=== PATIENT | male | born 1985 | race American Indian/Alaskan Native ===

== ENCOUNTER 2018-01-07 08:36 | Emergency (ER) | payer SELFPAY ==
[2018-01-07] MEDS ORDERED: Ondansetron 4 MG/2 ML SDV IVPUSH ONE (08:53)
[2018-01-07] MEDS ORDERED: Sodium Chloride 0.9% 10 ML Syringe FLUSH PRN ×2 (08:53→11:41)
[2018-01-07] MEDS ORDERED: Sodium Chloride 0.9% 1,000 ML IV SCH ×2 (09:00→10:00)
[2018-01-07] MEDS ORDERED: Sodium Chloride 0.9% 1,000 ML ONE (10:04)
--- NOTE | 2018-01-07 10:12 | CT ---
Head CT Technique: Multiple axial sections were obtained through the brain. Intravenous contrast was not utilized. Comparison: No previous intracranial imaging is available. Findings: Ventricles along with basal cisterns and sulci over convexities appear within normal limits for the patient's age. No abnormal parenchymal densities are seen. No evidence of intracranial hemorrhage. No midline shift or mass effect is seen. Bone window settings were reviewed which shows the visualized sinuses do appear clear. No acute calvarial abnormality is identified. Impression: 1. Nothing acute is seen on noncontrast head CT exam. Diagnostic code #1
--- NOTE | 2018-01-07 10:30 | EDM.PDOCBH ---
ED HPI GENERAL MEDICAL PROBLEM - General Chief Complaint: Drug or Alcohol Abuse Stated Complaint: ALCOHOL INTOXICATION Time Seen by Provider: 01/07/18 08:50 Source of Information: Reports: Family History Limitations: Reports: Intoxication - History of Present Illness INITIAL COMMENTS - FREE TEXT/NARRATIVE: The patient is brought in by his brother for alcohol intoxication. His brother says the patient has been drinking heavy for about 4 days. He does not talk much and he is not very cooperative. He is not violent. He has no medical problems according to his brother. When I was examining him he had pain to the right side of his head. He could not tell me if he fell. I see no other sign of injury. Onset: Gradual Duration: Day(s): (4) Location: Reports: Head Quality: Reports: Sharp Severity: Moderate Improves with: Reports: None Worsens with: Reports: None Associated Symptoms: Reports: Headaches, Nausea/Vomiting - Related Data Allergies Allergy/AdvReac Type Severity Reaction Status Date / Time Unable to Assess Allergy Unverified 01/07/18 08:42 Past Medical History Psychiatric History: Reports: Addiction Social & Family History - Tobacco Use Smoking Status *Q: Current Every Day Smoker Years of Tobacco use: 10 Packs/Tins Daily: 0.5 - Recreational Drug Use Other Recreational Drug Type: unknown drug use because pt. unable to answer apprpriately now. ED ROS GENERAL - Review of Systems Review Of Systems: See Below Constitutional: Reports: No Symptoms HEENT: Reports: No Symptoms Respiratory: Reports: No Symptoms Cardiovascular: Reports: No Symptoms Endocrine: Reports: No Symptoms GI/Abdominal: Reports: No Symptoms : Reports: No Symptoms Musculoskeletal: Reports: No Symptoms Skin: Reports: No Symptoms Neurological: Reports: Confusion ED EXAM, BEHAVIORAL HEALTH - Physical Exam Exam: See Below Exam Limited By: No Limitations General Appearance: Alert, No Apparent Distress Ears: Normal External Exam Nose: Normal Inspection Head: Normocephalic, Other (Moderate pain upon palpation to the right side of his head) Neck: Normal Inspection Respiratory/Chest: No Respiratory Distress, Lungs Clear, Normal Breath Sounds Cardiovascular: Regular Rate, Rhythm, No Edema, No Murmur GI/Abdominal: Soft, Non-Tender, No Organomegaly, No Mass Back Exam: Normal Inspection Extremities: Normal Inspection Neurological: No Motor/Sensory Deficits, Other (Somnolent but he will follow commands) COURSE, BEHAVIORAL HEALTH COMP - Course Vital Signs: Last Vital Signs Temp 96.0 F 01/07/18 08:43 Pulse 84 01/07/18 08:43 Resp BP 131/93 H 01/07/18 08:43 Pulse Ox 95 01/07/18 08:43 Orders, Labs, Meds: Active Orders 24 hr Category Date Time Status Cardiac Monitoring [RC] . DIRECTED Care 01/07/18 08:53 Active Peripheral IV Care [RC] . DIRECTED Care 01/07/18 08:54 Active Sodium Chloride 0.9% [Normal Saline] 1,000 ml Med 01/07/18 09:00 Active IV .BOLUS Sodium Chloride 0.9% [Normal Saline] 1,000 ml Med 01/07/18 10:00 Active IV ASDIRECTED Sodium Chloride 0.9% [Saline Flush] Med 01/07/18 11:41 Active 10 ml FLUSH ONETIME PRN ED Antiemetic Medication Reflex [OM.PC] Stat Oth 01/07/18 08:53 Ordered Peripheral IV Insertion Adult [OM.PC] Stat Ot 01/07/18 08:53 Ordered Medication Orders Sodium Chloride (Normal Saline) 1,000 mls @ 1,000 mls/hr IV .BOLUS [facility] Last Admin: 01/07/18 09:01 Dose: 1,000 mls/hr Sodium Chloride (Normal Saline) 1,000 mls @ 999 mls/hr IV ASDIRECTED SWAPNA Last Admin: 01/07/18 10:04 Dose: 999 mls/hr Sodium Chloride (Saline Flush) 10 ml FLUSH ONETIME PRN PRN Reason: IV FLUSH Laboratory Tests 01/07/18 01/07/18 01/07/18 Range/Units 08:50 08:50 10:05 WBC 6.71 (4.23-9.07) K/mm3 RBC 5.65 (4.63-6.08) M/mm3 Hgb 15.7 (13.7-17.5) gm/L Hct 46.3 (40.1-51.0) % MCV 81.9 (79.0-92.2) fl MCH 27.8 (25.7-32.2) pg MCHC 33.9 (32.2-35.5) g/dl RDW Std Deviation 44.9 H (35.1-43.9) fL Plt Count 296 (163-337) K/mm3 MPV 9.1 L (9.4-12.3) fl Neut % (Auto) 31.0 L (34.0-67.9) % Lymph % (Auto) 53.1 (21.8-53.1) % [place] % (Auto) 10.0 (5.3-12.2) % Eos % (Auto) 4.5 (0.8-7.0) Baso % (Auto) 1.3 H (0.1-1.2) % Neut # (Auto) 2.08 (1.78-5.38) K/mm3 Lymph # (Auto) 3.56 (1.32-3.57) K/mm3 [place] # (Auto) 0.67 (0.30-0.82) K/mm3 Eos # (Auto) 0.30 (0.04-0.54) K/mm3 Baso # (Auto) 0.09 H (0.01-0.08) K/mm3 Sodium 144 (136-145) mEq/L Potassium 3.7 (3.5-5.1) mEq/L Chloride 106 (98-107) mEq/L Carbon Dioxide 28 (21-32) mEq/L Anion Gap 13.7 (5-15) BUN 9 (7-18) mg/dL Creatinine 1.1 (0.7-1.3) mg/dL Est Cr Clr Drug Dosing 106.80 mL/min Estimated GFR (MDRD) > 60 (>60) mL/min BUN/Creatinine Ratio 8.2 L (14-18) Glucose 123 H (74-106) mg/dL Calcium 8.1 L (8.5-10.1) mg/dL Total Bilirubin 0.9 (0.2-1.0) mg/dL AST 86 H (15-37) U/L ALT 94 H (16-63) U/L Alkaline Phosphatase 84 (46-116) U/L Total Protein 7.7 (6.4-8.2) g/dl Albumin 3.9 (3.4-5.0) g/dl Globulin 3.8 gm/dL Albumin/Globulin Ratio 1.0 (1-2) Urine Opiates Screen Negative (NEGATIVE) Ur Buprenorphine Scrn Negative (NEGATIVE) Ur Oxycodone Screen Negative (NEGATIVE) Urine Methadone Screen Negative (NEGATIVE) Ur Propoxyphene Screen Negative (NEGATIVE) Ur Barbiturates Screen Negative (NEGATIVE) Ur Tricyclics Screen Negative (NEGATIVE) Ur Phencyclidine Scrn Negative (NEGATIVE) Ur Amphetamine Screen Negative (NEGATIVE) U Methamphetamines Scrn Negative (NEGATIVE) U Benzodiazepines Scrn Negative (NEGATIVE) U Cocaine Metab Screen Negative (NEGATIVE) U Marijuana (THC) Screen Negative (NEGATIVE) Ethyl Alcohol 0.43 (0.00) gm% Medications Generic Name Dose Route Start Last Admin Trade Name Freq PRN Reason Stop Dose Admin Sodium Chloride 1,000 mls @ 1,000 mls/hr 01/07/18 09:00 01/07/18 09:01 Normal Saline IV 1,000 mls/hr .BOLUS SWAPNA Administration Sodium Chloride 1,000 mls @ 999 mls/hr 01/07/18 10:00 01/07/18 10:04 Normal Saline IV 999 mls/hr ASDIRECTED SWAPNA Administration Sodium Chloride 10 ml 01/07/18 11:41 Saline Flush FLUSH ONETIME PRN IV FLUSH Discontinued Medications Generic Name Dose Route Start Last Admin Trade Name Freq PRN Reason Stop Dose Admin Sodium Chloride Confirm 01/07/18 10:04 01/07/18 10:03 Normal Saline Administered 01/07/18 10:05 Not Given Dose 1,000 mls @ as directed .ROUTE .STK-MED ONE Ondansetron HCl 4 mg 01/07/18 08:53 01/07/18 09:01 Zofran IVPUSH 01/07/18 08:54 4 mg ONETIME ONE Administration Sodium Chloride 10 ml 01/07/18 08:53 01/07/18 09:01 Saline Flush FLUSH 10 ml ASDIRECTED PRN Administration Keep Vein Open Re-Assessment/Re-Exam: I ordered an IV NS 2L bolus, zofran 4mg IV. CBC is negative. Glucose is 123. AST was elevated at 86. ALT was elevated at 94. His UDS was negative. His ETOH was very elevated at 0.43. He wants to get up but I talked him into staying longer. The patient is eating now. The CT of his head looks good. He feels better. I will discharge him now. Departure - Departure Time of Disposition: 12:00 Disposition: Home, Self-Care 01 Condition: Good Clinical Impression: Alcohol abuse Alcohol intoxication Qualifiers: Complication of substance-induced condition: uncomplicated Qualified Code(s): F10.920 - Alcohol use, unspecified with intoxication, uncomplicated - Discharge Information Referrals: PCP,None [Primary Care Provider] - Asim Nayak [Physician] - 1 Week Additional Instructions: Go home and rest. Do not drink today. Call [facility] at . They can help you stop drinking. Please return if you are worse. - My Orders Last 24 Hours: My Active Orders 01/07/18 08:53 Cardiac Monitoring [RC] . DIRECTED ED Antiemetic Medication Reflex [OM.PC] Stat Peripheral IV Insertion Adult [OM.PC] Stat 01/07/18 08:54 Peripheral IV Care [RC] . DIRECTED 01/07/18 09:00 Sodium Chloride 0.9% [Normal Saline] 1,000 ml IV .BOLUS 01/07/18 10:00 Sodium Chloride 0.9% [Normal Saline] 1,000 ml IV ASDIRECTED 01/07/18 11:41 Sodium Chloride 0.9% [Saline Flush] 10 ml FLUSH ONETIME PRN - Assessment/Plan Last 24 Hours: My Active Orders 01/07/18 08:53 Cardiac Monitoring [RC] . DIRECTED ED Antiemetic Medication Reflex [OM.PC] Stat Peripheral IV Insertion Adult [OM.PC] Stat 01/07/18 08:54 Peripheral IV Care [RC] . DIRECTED 01/07/18 09:00 Sodium Chloride 0.9% [Normal Saline] 1,000 ml IV .BOLUS 01/07/18 10:00 Sodium Chloride 0.9% [Normal Saline] 1,000 ml IV ASDIRECTED 01/07/18 11:41 Sodium Chloride 0.9% [Saline Flush] 10 ml FLUSH ONETIME PRN
[2018-01-07] MEDS ORDERED: Iopamidol 612 MG/ML 150 ML Bottle IVPUSH ONE (11:41)
== END 2018-01-07 12:16 | disposition home or self-care (01) ==
LOC: JD.ED 08:36
DX: F10.120 Alcohol abuse with intoxication, uncomplicated (principal); Y90.0 Blood alcohol level of less than 20 mg/100 ml; F17.210 Nicotine dependence, cigarettes, uncomplicated
CPT/HCPCS: 36415; 70450; 80053; 80306; 85025; 96361; 96374; 99284; G0480; J2405; J7040; J7050